=== PATIENT | female | born 1955 | race Asian ===

== ENCOUNTER 2024-03-08 09:32 | Emergency (ER) | payer MEDICARE, OTHER ==
[2024-03-08] MEDS: ACETAMINOPHEN 500 MG TAB PO ONE ×2 (11:22→13:55)
[2024-03-08] MEDS ORDERED: LIDO5CRE14 EX (13:52)
[2024-03-08 14:09] VITALS: BP 121/67; PULSE 66; RESP 18; TEMP 98; O2SAT 95
== END 2024-03-08 14:12 | disposition home or self-care (01) ==
LOC: ER 09:32
DX: S33.5XXA Sprain of ligaments of lumbar spine, initial encounter (principal); W01.0XXA Fall on same level from slipping, tripping and stumbling without subsequent striking against object, initial encounter; Y93.01 Activity, walking, marching and hiking; Y92.89 Other specified places as the place of occurrence of the external cause; Y99.8 Other external cause status
CPT/HCPCS: 72100; 72220

== ENCOUNTER 2025-01-11 14:39 | Emergency (ER) | payer MEDICARE, OTHER ==
[~2025-01-11] VITALS: Ht 154.9 cm; Wt 54.8 kg
[~2025-01-11 14:39] MED LIST: LIDO5CRE14 EX
[2025-01-11 15:06] VITALS: PULSE 70; RESP 16; O2SAT 93
--- NOTE | 2025-01-11 15:28 | ED.PDOC ---
Musculoskeletal HPI Comments 69 y/o F, presents to the ED for CC s/p fall. Patient states, that she tripped on the stairs today (01/11/25) landing on her left elbow and wrist. Patient comments on, limited range of motion with associated pain when moving her left arm. Patient denies head injury, LOC, fever, chills, or N/V/D. No other symptoms or modifying factors at this time. Chief Complaint: Fall Injury Time Seen by MD: 14:50 Primary Care Provider: UNKNOWN Reviewed Notes: Nurses Notes, Medications, Allergies Allergies: Coded Allergies: NO KNOWN ALLERGIES (Unverified , 03/08/24) Home Meds Active Scripts Lidocaine (Anorectal) (Lidocaine 5%) 5 % Cre, 5 % EX DAILYP PRN for 30 Days, #30 PATCH 0 Refills Prov:JOSTIN ROBERTS Crystal [employer] 03/08/24 Information Source: Patient, Relative (Child) Mode of Arrival: Ambulatory Location: Left Extremity Location: Elbow, Wrist Timing: Minutes Prehospital treatment: None Severity: Moderate Able to Move Extremity: Yes Bear Weight: Limited Pain: Moderate Mechanism: None Circumstances: Fall Onset of Symptoms: After Trauma Symptoms: Swelling, Pain DVT Risk Factors: NONE Last Tetanus: Unknown Associated signs and symptoms: Arm pain, Wrist pain Past Medical History PAST MEDICAL HISTORY: HTN Surgical History: 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 History: Denies all 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 Hx Family History Family History: Reviewed,noncontributory to illness Social History Smoker: Non-Smoker Alcohol: Denies ETOH Use Drugs: Denies Drug Use Constitutional: denies: chills, diaphoresis, fatigue, fever, malaise, sweats, weakness, others EENTM: denies: blurred vision, double vision, ear bleeding, ear discharge, ear drainage, ear pain, ear ringing, eye pain, eye redness, hearing loss, mouth pain, mouth swelling, nasal discharge, nose bleeding, nose congestion, nose pain, photophobia, tearing, throat pain, throat swelling, voice changes, others Respiratory: denies: cough, hemoptysis, orthopnea, SOB at rest, shortness of breath, SOB with excertion, stridor, wheezing, others Cardiovascular: denies: chest pain, dizzy spells, diaphoresis, Dyspnea on exertion, edema, irregular heart beat, left arm pain, lightheadedness, palpi tations, PND, syncope, others Gastrointestinal: denies: abdomen distended, abdominal pain, blood streaked bowels, constipated, diarrhea, dysphagia, difficulty swallowing, hematemesis, melena, nausea, poor appetite, poor fluid intake, rectal bleeding, rectal pain, vomiting, others Genitourinary: denies: abnormal vagina bleeding, burning, dyspareunia, dysuria, flank pain, frequency, hematuria, incontinence, pain, , vagina discharge, urgency, others Neurological: denies: dizziness, fainting, headache, left sided numbness, left sided weakness, numbness, paresthesia, pre-existing deficit, right sided numbness, right sided weakness, seizure, speech problems, tingling, tremors, weakness, others Musculoskeletal: reports: others (LEFT WRIST PAIN, LEFT ELBOW PAIN); denies: back pain, gout, joint pain, joint swelling, muscle pain, muscle stiffness, neck pain Integumetry: denies: bruises, change in color, change in hair/nails, dryness, laceration, lesions, lumps, rash, wounds, others Allergic/Immunocompromised: denies: Difficulty Healing, Frequent Infections, Hives, Itching, others Hematologic/Lymphatic: denies: anemia, blood clots, easy bleeding, easy bruising, swollen glands, others Endocrine: denies: excessive hunger, excessive sweating, excessive thirst, excessive urination, flushing, intolerance to cold, intolerance to heat, unexplained weight gain, unexplained weight loss, others Psychiatric: denies: anxiety, bipolar disorder, depression, hopeless, panic disorder, schizophrenia, sleepless, suicidal, others All Other Systems: Reviewed and Negative Physical Exam General Appearance: Moderate Distress HEENT: Normal ENT Inspection, Pharynx Normal, TMs Normal Neck: Full Range of Motion, Non-Tender, Normal, Normal Inspection Respiratory: Chest Non-Tender, Lungs Clear, No Accessory Muscle Use, No Respiratory Distress, Normal Breath Sounds Cardiovascular: No Edema, No JVD, No Murmur, No Gallop, Normal Peripheral Pu lses, Regular Rate/Rhythm Breast Exam: Deferred Gastrointestinal: No Organomegaly, Non Tender, No Pulsatile Mass, Normal Bowel Sounds, Soft Genitalia: Deferred Pelvic: Deferred Rectal: Deferred Extremities: No calf tenderness, Normal capillary refill, No pedal edema Musculoskeletal : Location: Left Extremity Location: Wrist Apperance: Deformity, Limited ROM, Tenderness: Moderate Neurologic: Alert, ed teacher II-XII nml as Tested, No Motor Deficits, Normal Affect, Normal Mood, No Sensory Deficits Cerebellar Function: Normal Reflexes: Normal Skin: Dry, Normal Color, Warm Lymphatic: No Adenopathy Was a procedure done? Was a procedure done?: No Differential Diagnosis EXT Differential Diagnosis: Fracture, Sprain, Dislocation, Strain X-Ray, Labs, Meds, VS Vital Signs Date Time Temp Pulse Resp B/P (MAP) Pulse Ox O2 Delivery O2 Flow Rate FiO2 01/11/25 15:06 70 16 93 Room Air* 0 21 01/11/25 15:06 97.8 70 16 140/64 (89) 93 L WRIST XR: FINDINGS/IMPRESSION: : 1. Left distal radial metaphyseal fracture with comminution, displacement, shortening, and intra-articular extension.No fractures are 2. Identified about the distal ulna, carpal bones, or metacarpal bones. 3. 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 ATED BY: CRISTOPHER BECERRA MD DICTATED DATE/TIME: 01/11/251537 SIGNED BY: CRISTOPHER BECERRA MD SIGNED DATE/TIME: 01/11/251537 CC: L ELBOW XR: FINDINGS/IMPRESSION: : 1. No acute fracture or dislocation of the left elbow. 2. No significant joint space narrowing or joint effusion. ATED BY: CRISTOPHER BECERRA MD DICTATED DATE/TIME: 01/11/25 153 SIGNED BY: CRISTOPHER BECERRA MD SIGNED DATE/TIME: 01/11/25 153 CC: The patient was being placed in a sugar-tong splint and a sling The patient will follow up with the primary care doctor The patient was given one [place] here in the emergency department's for the pain The patient was discharged The patient will follow up with the orthopedic surgeon. Images Reviewed?: Images reviewed and evaluated by me Time of 1ST Reevaluation: 15:20 Reevaluation 1ST: Unchanged Time of 2ND Reevaluation: 16:01 Reevaluation 2ND: Improved Patient Education/Counseling: Diagnosis, Treatment, Prognosis, Need For Follow Up Family Education/Counseling: Diagnosis, Treatment, Prognosis, Need For Follow Up Additional Information - I reviewed the following notes from patient's past medical encounters: 03/08/24 DX: FALL - The following tests were ordered, and results were reviewed by me: L WRIST XR, L ELBOW XR - Additional information was gathered from interviewing the following independent Historian: FAMILY - I reviewed and agreed with the following test results read by other provider: L WRIST XR, L ELBOW XR - I discussed treatments and results with medical personnel and: FAMILY Departure 1 Departure Time of Disposition: 16:00 Impression: Primary Impression: Left wrist fracture Qualified Codes: S62.102A - Fracture of unspecified carpal bone, left wrist, initial encounter for closed fracture Additional Impression: History of fall Disposition: 01 HOME / SELF CARE / HOMELESS Condition: Fair Discharged With: Self, Relative Critical Care Note Critical Care Time?: No Stability Stability form required: No Heart Score Heart Score: Heart Score Response (Comments) Value History N/A 0 EKG N/A 0 Age N/A 0 Risk Factors N/A 0 Troponin N/A 0 Total 0 I personally scribed for FRANCISCO DAVIDSON MD ([email or web address]) on 01/11/25 at 15:28. Electronically submitted by Silvia Greene ([email or web address]). I personally scribed for FRANCISCO DAVIDSON MD ([email or web address]) on 01/11/25 at 15:37. Electronically submitted by Silvia Greene ([email or web address]). I personally scribed for FRANCISCO DAVIDSON MD ([email or web address]) on 01/11/25 at 15:58. Electronically submitted by Silvia Greene ([email or web address]). I personally scribed for FRANCISCO DAVIDSON MD ([email or web address]) on 01/11/25 at 15:59. Electronically submitted by Silvia Greene ([email or web address]). FRANCISCO DAVIDSON MD Jan 11, 2025 15:28
--- NOTE | 2025-01-11 15:41 | DVH ---
CLINICAL INDICATION: FALL INJURY TECHNIQUE: AP and lateral views of the left wrist were performed. XY L WRIST 2 VIEW XRAY Comparison: None FINDINGS/IMPRESSION: : 1. Left distal radial metaphyseal fracture with comminution, displacement, shortening, and intra-carlos cular extension.No fractures are 2. Identified about the distal ulna, carpal bones, or metacarpal bones. 3. 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
--- NOTE | 2025-01-11 15:42 | DVH ---
CLINICAL INDICATION: FALL INJURY TECHNIQUE: AP and lateral views of the left elbow were performed. XY L ELBOW 2 VIEW XRAY Comparison: None FINDINGS/IMPRESSION: : 1. No acute fracture or dislocation of the left elbow. 2. No significant joint space narrowing or joint effusion.
[2025-01-11] MEDS: HYDROcodone-ACET 5/325MG TAB PO ONE (17:12)
[2025-01-11 17:53] VITALS: BP 126/70; PULSE 70; RESP 19; TEMP 98.5; O2SAT 98
== END 2025-01-11 17:54 | disposition home or self-care (01) ==
LOC: ER 14:39
DX: S62.102A Fracture of unspecified carpal bone, left wrist, initial encounter for closed fracture (principal); I10 Essential (primary) hypertension; Z98.890 Other specified postprocedural states; W01.0XXA Fall on same level from slipping, tripping and stumbling without subsequent striking against object, initial encounter; Y93.89 Activity, other specified; Y92.89 Other specified places as the place of occurrence of the external cause; Y99.8 Other external cause status
CPT/HCPCS: 29125; 73070; 73100